=== PATIENT | female | born 1980 | race Caucasian/White ===

== ENCOUNTER 2017-07-31 07:31 | Day surgery (SDC) | payer OTHER | END 2017-07-31 14:10 | disposition home or self-care (01) | LOC: AMB-ENDOS 07:31 | DX: K58.0 Irritable bowel syndrome with diarrhea (principal); A08.8 Other specified intestinal infections ==

== ENCOUNTER 2020-10-04 07:23 | Inpatient (IN) | payer OTHER ==
[~2020-10-04] VITALS: Ht 162.6 cm; Wt 61.2 kg
== END 2020-10-05 18:04 | disposition home or self-care (01) | DRG 743 ==
LOC: CIR.AMB 07:23 → O/R 19:38 → OB/GYN 19:38
PROVIDERS: ADMIT Specialist; ATTEND Specialist
PROC: 0U5B8ZZ Destruction of Endometrium, Via Natural or Artificial Opening Endoscopic (ICD-10-PCS; principal; 2020-10-05)
PROC: 0UDB8ZX Extraction of Endometrium, Via Natural or Artificial Opening Endoscopic, Diagnostic (ICD-10-PCS; 2020-10-05)
DX: N80.0 Endometriosis of uterus (principal); N94.6 Dysmenorrhea, unspecified; D26.1 Other benign neoplasm of corpus uteri